=== PATIENT | female | born 1995 | race African-American/Black ===

== ENCOUNTER 2020-12-24 01:12 | Emergency (ER) | payer OTHER ==
[2020-12-24 02:15] VITALS: BP 141/72; PULSE 78; TEMP 96.5; BMI 32.1
[2020-12-24 03:23] LABS: EPI CELLS >36 /uL (0-25.1); HYALINE CASTS 7 /uL (0-3.1); PH,URINE 5.5 (5.0-8.0); URINE APPEARANCE TURBID; URINE BILIRUBIN 2+ (NEGATIVE); URINE COLOR RED; URINE GLUCOSE (UA) NEGATIVE (NEGATIVE); URINE KETONE NEGATIVE (NEGATIVE); URINE LEUK ESTERASE 1+ (NEGATIVE); URINE NITRITE POSITIVE (NEGATIVE); URINE PROTEIN 2+ (NEGATIVE); URINE WBC 69 /uL (0-25.8)
[2020-12-24 03:52] LABS: URINE BACTERIA 24.2 /uL (0-1359); URINE RBC 40912.2 /uL (0-23.9); YEAST NONE SEEN (NEGATIVE)
== END 2020-12-24 04:53 | disposition home or self-care (01) ==
LOC: JER 01:12
DX: O20.0 Threatened abortion (principal); O41.8X10 Other specified disorders of amniotic fluid and membranes, first trimester, not applicable or unspecified
CPT/HCPCS: 36415; 76817-TC; 81003; 84703; 86850; 86900; 86901; 99283-25

== ENCOUNTER 2021-02-02 21:27 | Emergency (ER) | payer OTHER ==
[2021-02-02 21:38] VITALS: BP 121/78; PULSE 81; TEMP 98; BMI 31.6
[2021-02-03 00:31] LABS: BASO % 0.3 % (0-2.0); EOS % 0.9 % (0-4.5); HEMATOCRIT 39.7 % (32.4-45.2); HEMOGLOBIN 13.6 GM/dL (10.7-15.3); MCHC 34.1 g/dl (32.0-36.0); MEAN CELL VOLUME 84.9 fl (80-96); MONO % 4.6 % (3.8-10.2); NEUT % 66.2 % (42.8-82.8); PLATELET COUNT 186 10^3/uL (134-434); RBC 4.68 M/mm3 (3.60-5.2); RDW 13.7 % (11.6-15.6); WHITE BLOOD COUNT 8.2 K/mm3 (4.0-10.0)
[2021-02-03 00:53] LABS: BLOOD UREA NITROGEN 10.5 mg/dL (7-18); CALCIUM 8.5 mg/dL (8.5-10.1)
[2021-02-03 00:55] LABS: CREATININE 0.8 mg/dL (0.55-1.3)
== END 2021-02-03 02:38 | disposition home or self-care (01) ==
LOC: JER 21:27
DX: O02.1 Missed abortion (principal)
CPT/HCPCS: 36415; 76817-TC; 80048; 84702; 85025; 99284-25

== ENCOUNTER 2021-02-13 22:27 | Emergency (ER) | payer OTHER ==
[2021-02-13 22:35] VITALS: BP 122/76; PULSE 72; TEMP 98; BMI 31.6
[2021-02-14 00:34] LABS: BASO % 0.6 % (0-2.0); EOS % 1.1 % (0-4.5); EPI CELLS >36 /uL (0-25.1); HEMATOCRIT 33.2 % (32.4-45.2); HYALINE CASTS 2 /uL (0-3.1); MCH 28.2 pg (25.7-33.7); MCHC 33.2 g/dl (32.0-36.0); MEAN PLT VOLUME 8.2 fl (7.5-11.1); MONO % 8.1 % (3.8-10.2); NEUT % 64.2 % (42.8-82.8); PH,URINE 6.5 (5.0-8.0); PLATELET COUNT 169 10^3/uL (134-434); RBC 3.91 M/mm3 (3.60-5.2); RDW 13.4 % (11.6-15.6); URINE APPEARANCE CLOUDY; URINE BACTERIA 325 /uL (0-1359); URINE BILIRUBIN NEGATIVE (NEGATIVE); URINE COLOR YELLOW; URINE GLUCOSE (UA) NEGATIVE (NEGATIVE); URINE KETONE TRACE (NEGATIVE); URINE LEUK ESTERASE NEGATIVE (NEGATIVE); URINE NITRITE NEGATIVE (NEGATIVE); URINE PROTEIN 1+ (NEGATIVE); URINE WBC 19 /uL (0-25.8); WHITE BLOOD COUNT 5.6 K/mm3 (4.0-10.0)
[2021-02-14 03:40] LABS: URINE RBC 323.9 /uL (0-23.9); YEAST NONE SEEN (NEGATIVE)
== END 2021-02-14 01:42 | disposition home or self-care (01) ==
LOC: JER 22:27
DX: N93.9 Abnormal uterine and vaginal bleeding, unspecified (principal)
CPT/HCPCS: 36415; 76830-TC; 81003; 84702; 85025; 99284-25

== ENCOUNTER 2021-07-12 23:44 | Emergency (ER) | payer OTHER ==
[2021-07-12 23:55] VITALS: BP 132/64; PULSE 78; TEMP 97.9; BMI 29.2
[2021-07-13 00:38] LABS: EPI CELLS >36 /uL (0-25.1); HYALINE CASTS 3 /uL (0-3.1); PH,URINE 8.5 (5.0-8.0); URINE APPEARANCE CLOUDY; URINE BACTERIA 2538 /uL (0-1359); URINE BILIRUBIN NEGATIVE (NEGATIVE); URINE COLOR YELLOW; URINE GLUCOSE (UA) NEGATIVE (NEGATIVE); URINE KETONE TRACE (NEGATIVE); URINE LEUK ESTERASE TRACE (NEGATIVE); URINE NITRITE NEGATIVE (NEGATIVE); URINE PROTEIN 1+ (NEGATIVE); URINE RBC 56 /uL (0-23.9); URINE WBC 47 /uL (0-25.8)
[2021-07-13 01:06] LABS: BASO % 0.6 % (0-2.0); HEMATOCRIT 36.4 % (32.4-45.2); HEMOGLOBIN 12.2 GM/dL (10.7-15.3); LYMPH % 35.7 % (8-40); MCH 28.5 pg (25.7-33.7); MCHC 33.6 g/dl (32.0-36.0); MEAN CELL VOLUME 85.1 fl (80-96); MEAN PLT VOLUME 7.9 fl (7.5-11.1); MONO % 5.6 % (3.8-10.2); NEUT % 57.1 % (42.8-82.8); PLATELET COUNT 168 10^3/uL (134-434); RBC 4.27 M/mm3 (3.60-5.2); RDW 14.4 % (11.6-15.6); WHITE BLOOD COUNT 7.6 K/mm3 (4.0-10.0)
[2021-07-13 01:30] LABS: CALCIUM 8.5 mg/dL (8.5-10.1)
[2021-07-13 01:34] LABS: CREATININE 0.9 mg/dL (0.55-1.3)
== END 2021-07-13 01:48 | disposition home or self-care (01) ==
LOC: JER 23:44
DX: O20.0 Threatened abortion (principal); O23.40 Unspecified infection of urinary tract in pregnancy, unspecified trimester; Z3A.00 Weeks of gestation of pregnancy not specified
CPT/HCPCS: 36415; 76817-TC; 80048; 81003; 84702; 84703; 85025; 86850; 86900; 86901; 87086; 99284-25

== ENCOUNTER 2022-05-28 02:33 | Emergency (ER) | payer OTHER ==
[2022-05-28 02:46] VITALS: BP 131/89; PULSE 76; RESP 18; TEMP 98.1; BMI 24.0
[2022-05-28] MEDS ORDERED: ACETAMINOPHEN 500 MG TABLET (FP) PO ONE (03:18)
[2022-05-28] MEDS ORDERED: ACETAMINOPHEN 325 MG TABLET (FP) ONE (03:25)
== END 2022-05-28 04:08 | disposition home or self-care (01) ==
LOC: JER 02:33
DX: N10 Acute pyelonephritis (principal)
CPT/HCPCS: 99283-25

== ENCOUNTER 2023-01-04 21:17 | Emergency (ER) | payer OTHER ==
[2023-01-04 21:22] VITALS: BP 132/81; PULSE 107; RESP 20; TEMP 98.2; BMI 28.6
[2023-01-04 21:53] LABS: BASO % 0.1 % (0-2.0); EOS % 0.7 % (0-4.5); HEMATOCRIT 38.3 % (32.4-45.2); HEMOGLOBIN 12.6 GM/dL (10.7-15.3); LYMPH % 40.8 % (8-40); MCH 24.9 pg (25.7-33.7); MCHC 32.8 g/dl (32.0-36.0); MEAN CELL VOLUME 75.9 fl (80-96); MEAN PLT VOLUME 7.9 fl (7.5-11.1); MONO % 6.9 % (3.8-10.2); NEUT % 51.5 % (42.8-82.8); PLATELET COUNT 167 10^3/uL (134-434); RBC 5.05 M/mm3 (3.60-5.2); RDW 14.7 % (11.6-15.6); WHITE BLOOD COUNT 7.7 K/mm3 (4.0-10.0)
[2023-01-04 22:10] LABS: POTASSIUM 3.9 mmol/L (3.5-5.1)
[2023-01-04 22:12] LABS: ALBUMIN 3.4 g/dl (3.4-5.0); CALCIUM 8.2 mg/dL (8.5-10.1)
[2023-01-04 22:15] LABS: CREATININE 0.5 mg/dL (0.55-1.3)
[2023-01-04 22:17] LABS: BILIRUBIN,TOTAL 0.5 mg/dL (0.2-1); TOT PROT 6.7 g/dl (6.4-8.2)
== END 2023-01-05 00:35 | disposition left against medical advice (07) ==
LOC: JER 21:17
DX: O20.9 Hemorrhage in early pregnancy, unspecified (principal); O26.891 Other specified pregnancy related conditions, first trimester; R00.0 Tachycardia, unspecified; Z3A.00 Weeks of gestation of pregnancy not specified
CPT/HCPCS: 36415; 76817-TC; 80053; 84702; 85025; 86850; 86900; 86901; 99284-25